=== PATIENT | female | born 1965 | race Two or more races ===

== ENCOUNTER → 2025-02-05 | Outpatient (CLI) | payer BC, SELFPAY ==
--- NOTE | 2025-02-05 08:19 | XR_ITS ---
Examination: Right hand 2 views Technique one AP lateral right hand 2 views Date and time: February 05, 2025 0821 hours INDICATIONS: Right hand pain and swelling beginning one month ago, no trauma. FINDINGS: Moderate osteopenia. No fracture or dislocation. No erosive or other significant arthritic change IMPRESSION: No erosive or other significant arthritic change
[2025-02-05 09:04] LABS: Collection Type, Urine Clean Catch
[2025-02-05 09:31] LABS: Basophils # (Auto) 0.1 Thou/mm3 (0.0-0.2); Basophils % (Auto) 1 % (0-2.5); Eosinophils # (Auto) 0.3 Thou/mm3 (0.0-0.5); Eosinophils % (Auto) 4 % (0-10); Hematocrit 42.2 % (36.0-46.0); Hemoglobin 13.5 g/dL (12.0-16.0); Immature Granulocytes Auto 0.02 Thou/mm3 (0.00-0.00); Lymphocytes # (Auto) 2.4 Thou/mm3 (1.0-4.8); Lymphocytes % (Auto) 33 % (10-50); Mean Corpuscular HGB Conc 32.0 g/dl (31.0-37.0); Mean Corpuscular Hemoglobin 30.8 pg (25.0-35.0); Mean Corpuscular Volume 96 fL (80-100); Monocytes # (Auto) 0.6 Thou/mm3 (0.0-0.8); Monocytes % (Auto) 8 % (0-12); Neutrophils # (Auto) 3.9 Thou/mm3 (1.8-7.7); Neutrophils % (Auto) 55 % (37-80); Nucleated Red Blood Cell # 0.00 Thou/mm3 (0.00-0.00); Nucleated Red Blood Cell % 0 /100 WBC (0); Platelet Count 341 Thou/mm3 (140-440); RDW Standard Deviation 43.8 fL (36.4-46.3); Red Blood Count 4.39 Miln/mm3 (4.00-5.20); White Blood Count 7.2 Thou/mm3 (3.6-11.0)
[2025-02-05 09:35] LABS: Bilirubin,Urine Negative (Negative); Blood,Urine Negative (Negative); Clarity,Urine Clear (Clear/Hazy); Color,Urine Lt-Yellow (Lt Yel-Yel); Glucose, Urine 4+ (Negative); Ketones,Urine Negative (Negative); Leukocyte Esterase,Urine Positive (Negative); Nitrite,Urine Negative (Negative); PH,Urine 7.0 (5.0-7.0); Protein,Urine Negative (Neg - Trace); RBC,Urine 3 /hpf (0-3); Specific Gravity,Urine 1.028 (1.001-1.035); Squamous Epithelial Cell,Urine 9 /hpf (0-5); Urobilinogen,Urine Negative mg/dL (0.0-1.0); WBC,Urine 25 /hpf (0-5)
[2025-02-05 09:36] LABS: Culture Indicated,Urine Yes
[2025-02-05 09:37] LABS: Glucose Estimated Average 117 mg/dL (80-131); Hemoglobin A1C 5.7 % Hgb (4.8-6.0)
[2025-02-05 09:44] LABS: Ferritin 54 ng/mL (7.3-270.7); Vitamin D 25 Hydroxy Total 40.9 ng/mL (7.3-40.2)
[2025-02-05 09:48] LABS: Alanine Aminotransferase 11 U/L (10-49); Albumin, Serum 4.0 gm/dL (3.5-5.0); Albumin/Globulin Ratio 1.5 (1.2-2.2); Alkaline Phosphatase 135 U/L (46-116); Anion Gap 10 (7-16); Aspartate Amino Transferase 17 U/L (0-34); BUN/Creatinine Ratio 19 Ratio (12-20); Bilirubin,Total 0.4 mg/dL (0.3-1.2); Blood Urea Nitrogen 13 mg/dL (9-23); Calcium 8.6 mg/dL (8.3-10.6); Calcium (Corrected) 8.6 mg/dL (8.5-10.1); Carbon Dioxide 28.3 mMol/L (20.0-31.0); Cardiac Risk Estimate 3.2 RATIO (3.7-5.6); Chloride 107 mMol/L (98-107); Cholesterol 152 mg/dL (132-200); Creatinine (Component) 0.7 mg/dL (0.6-1.3); Free T4 (Free Thyroxine) 1.20 ng/dL (0.89-1.76); Globulin 2.7 gm/dL (2.3-3.5); Glucose 85 mg/dL (74-106); HDL Cholesterol 48 mg/dL (40-60); LDL Cholesterol,Calculated 72 mg/dL (0-130); Osmolality,Calculated 287 (275-295); Potassium 3.9 mMol/L (3.4-5.1); Sodium 145 mMol/L (136-145); Thyroid Stimulating Hormone 3.14 uIU/mL (0.55-4.78); Total Protein 6.7 gm/dL (5.7-8.2); Triglycerides 162 mg/dL (30-150); eGFR > 60 See Note
[2025-02-05 09:58] LABS: Creatinine MALB Rnd Ur 72 mg/dL (30-125); Microalbumin Creat Ratio 4 mg/gCrea (<30); Microalbumin, Random Urine 3 mg/L (0-300)
[2025-02-11 06:19] LABS: Direct LDL* 78 mg/dL (<100)
== END | disposition home or self-care (01) ==
LOC: CDIM 08:15 → COPL 08:32
PROVIDERS: PCP Family Medicine; Referring Provider Physician Assistant; Visit Provider Radiology Diagnostic Radiology
DX: M79.89 Other specified soft tissue disorders (principal); E11.9 Type 2 diabetes mellitus without complications; E55.9 Vitamin D deficiency, unspecified
CPT/HCPCS: 36415; 73120; 80053; 80061; 81001; 82043; 82306; 82570; 82728; 83036; 83721; 84439; 84443; 85025; 87086

== ENCOUNTER 2025-04-24 01:23 | Emergency (ER) | payer BC, SELFPAY ==
[2025-04-24 01:37] VITALS: BP 132/79; PULSE 58; RESP 18; TEMP 36.8; O2SAT 97
[2025-04-24] MEDS: TRIMETHOPRIM/SULFA 160/800 DS TABLET 1 TAB PO (01:47)
--- NOTE | 2025-04-24 01:50 | PD.EDHAND ---
Upper Extremity Injury RME/HPI General Chief Complaint: Hand/Wrist Problems Stated Complaint: LEFT FINGERS SWELLING Time Seen by Provider: 04/24/25 01:37 Arrival date/time: 04/24/25 01:23 59F with history of DM presents to ED with 2 days of L ring tip finger swelling and pain. Patient possibly poked her finger on a nando thorn 1 week ago. Limitations: no limitations Related Data Home Medications ?Medication ?Instructions ?Recorded ?Confirmed dapagliflozin propaned 5 1 tab PO BID 07/27/22 07/27/22 mg-metformin ER 1,000 mg tablet, ext rel 24hr (Xigduo XR) metoclopramide HCl 5 mg tablet 5 mg PO BID 07/27/22 07/27/22 pantoprazole 40 mg tablet,delayed 40 mg PO DAILY 07/27/22 07/27/22 release Previous Rx's ?Medication ?Instructions ?Recorded dicyclomine 10 mg capsule 10 mg PO QID PRN abdominal pain / 01/22/23 diarrhea #20 caps cefadroxil 1 gram tablet 1,000 mg PO BID 7 days #14 tabs 04/24/25 sulfamethoxazole 800 1 tab PO BID 7 days #14 tabs 04/24/25 mg-trimethoprim 160 mg tablet (Bactrim DS) Allergies Allergy/AdvReac Type Severity Reaction Status Date / Time No Known Allergies Allergy Verified 01/22/23 07:57 Review of Systems Review of Systems Systems Reviewed: All systems reviewed, normal except as documented Integumentary/Breasts Skin/Breast: Reports as per HPI and Reports skin pain Past Medical History Past Medical History NEUROLOGIC: Negative Neurological Disorders, Seizures or Amyotrophic Lateral Sclerosis (ALS/Isabella Gehrig's) CARDIAC: Positive Cardiac Disorders, Hypercholesterolemia, Edema, Hypertension and Varicose Veins; Negative Congestive Heart Failure or Cellulitis RESPIRATORY: Negative Chronic Obstructive Pulmonary Disease (COPD), Asthma, Bronchitis, Pneumonia or Tuberculosis GASTROINTESTINAL: Positive Gastrointestinal Disorders, Diverticulitis, Ulcer, Hemorrhoids and Gastroesophageal Reflux Disease; Negative Hepatitis, Cirrhosis, Gall Bladder Disease, Colitis or Crohn's Disease GENITOURINARY: Negative Genitourinary Disorders or Renal Disease REPRODUCTIVE: Positive Previous Pregnancies; Negative Pelvic Inflammatory Disease MUSCULOSKELETAL: Negative Musculoskeletal Disorders or Carpal Tunnel Syndrome ENT: Positive Cataracts ENDOCRINE: Positive Endocrine Disorders and Diabetes Mellitus Type 2; Negative Diabetes Mellitus Type 1 or Hypothyroidism HEMATOLOGIC: Negative Blood Disorders or Anemia PSYCHO/SOCIAL: Positive Depression and Anxiety OTHER HISTORY: Positive Measles; Negative Hospitalization, Autoimmune Disease, Shingles, Falls, Blood Transfusions, Anesthesia Reactions, Organ Transplant, Chemotherapy, Radiation Therapy, MRSA, Chicken Pox, Mumps or Cancer Family History FAMILY HISTORY: Positive Family Cardiac Disorders, Family Cancer and Family Surgery; Negative Family Psychiatric Problems, Family Respiratory Disorders, Family Gastrointestinal Problems or Family Anesthesia Reaction Surgical History SURGICAL: Positive Eye Surgery and Nephrectomy; Negative Cardiac Surgery, Pacemaker, Endocrine Surgery, Thyroidectomy, Abdominal Surgery, Joint Replacement, Neurologic Surgery, Mastectomy, Vasectomy or Organ Transplant Social History SMOKING STATUS: Never smoker ED Exam General Limitations: Present no limitations General appearance: Present alert and in no apparent distress Head Head exam: Present atraumatic Neck Neck exam: Present normal inspection, full ROM and trachea midline Chest Chest inspection: Present normal inspection and symmetric chest wall rise Extremities Exam Extremities exam: Present full ROM Expanded Upper Extremity Exam Hand exam: Present full ROM (L tip index finger), tenderness, swelling and erythema Neurological Exam Neurological exam: Present alert, oriented X3 and CN II-XII intact Psychiatric Psychiatric exam: Present normal affect and normal mood Skin Skin exam: Present warm, dry, intact and normal color Course Quality Measures none Orders Category Date Time Status Trimethoprim/Sulfa 160/800 Ds [Bactrim Ds] Med 04/24/25 01:39 Discontinued 1 tab PO X1 ONE cephALEXin [Keflex] Med 04/24/25 01:39 Discontinued 500 mg PO X1 ONE Vital Signs Vital signs: Vital Signs Temperature 98.3 F 04/24/25 01:37 Pulse Rate 58 L 04/24/25 01:37 Respiratory Rate 18 04/24/25 01:37 Blood Pressure 132/79 H 04/24/25 01:37 Pulse Oximetry (%) 97 04/24/25 01:37 Oxygen Delivery Method Room Air 04/24/25 01:37 O2 at 97% on RA and WNLs Extremity Injury MDM Narrative MDM Narrative:: 59F with history of DM presents to ED with 2 days of L ring tip finger swelling and pain. Patient possibly poked her finger on a nando thorn 1 week ago. Physical exam reveals L ring finger tip redness, swelling, and tenderness. No pain with passive or active ROM of fingers/hand. Patient is afebrile, calm, and alert. Meds and personnel counselor given. Will give dual coverage of Keflex/Duricef and Bactrim. Patient data External records reviewed:: [facility] previous records Clinical information provided by:: patient Social determinants that could affect healthcare access:: none Patient has the following chronic illnesses:: DM How is presenting disease/condition affected by chronic disease/condition?: exacerbated by Evaluation data The following diagnostics were reviewed and interpreted by me:: other (specify) (none) Lab and/or radiology exams considered but not ordered:: not ordered Interpretation Summary: n/a Medications / Prescriptions Medications or Prescriptions considered but not ordered:: ordered Medication administrations:: Medication Administration History Discontinued Medications Cephalexin HCl (Cephalexin 250 Mg Capsule) 500 mg PO X1 ONE Stop: 04/24/25 01:40 Last Admin: 04/24/25 01:47 Dose: 500 mg Documented By: MALLORY Trimethoprim/Sulfamethoxazole (Trimethoprim/Sulfa 160/800 Ds Tablet) 1 tab PO X1 ONE Stop: 04/24/25 01:40 Last Admin: 04/24/25 01:47 Dose: 1 tab Documented By: MALLORY above Consultations Consultation(s) initiated? (list below): No Diagnosis Upper Extremity Injury Differential Diagnosis: sprain and strain of wrist, fracture of wrist, finger sprain, dislocation of finger, Colles' fracture, fracture of hand and other (cellulitis, flexor tenosynovitis) Most likely diagnosis given after review of the tests above:: cellulitis Admission Indicated Admission indicated?: not indicated Admission Request Was there a request for admission?: No Disposition Plan Disposition Plan: Discharge Discharge Attestation Discharge Attestation: The patient and all family members were given an opportunity to ask questions and understood the discharge instructions. Discharge instructions specifically effects, indications for sooner follow up or return to the emergency department, and the expected course of current diagnosis. Patient condition: Stable Discharge Plan Plan Patient Disposition: HOME (Self Care) Discharge Disposition comment: Stable Prescriptions/Referrals Prescriptions/Med Rec: New cefadroxil 1 gram tablet 1,000 mg PO BID 7 Days Qty: 14 0RF sulfamethoxazole-trimethoprim [Bactrim DS] 800-160 mg tablet 1 tab PO BID 7 Days Qty: 14 0RF No Action dicyclomine 10 mg capsule 10 mg PO QID PRN (Reason: abdominal pain / diarrhea) Qty: 20 0RF metoclopramide HCl 5 mg tablet 5 mg PO BID Patient Comments: TOME CONSTANTIN TABLETA DOS VECES AL D A pantoprazole 40 mg tablet,delayed release (DR/EC) 40 mg PO DAILY Patient Comments: NAJMA CONSTANTIN TABLETA POR V A ORAL TODOS LOS D Xigduo XR 5-1,000 mg tablet, IR - ER, biphasic 24hr 1 tab PO BID Patient Comments: TAKE 1 TABLET BY ORAL ROUTE 2 TIMES EVERY DAY IN THE MORNING WITH FOOD Problem List Clinical Impression: Cellulitis Patient/Caregiver Discharge Instructions Education Materials: ED Cellulitis Additional Instructions: Please follow-up with PCP within 24-48 hours and return immediately if symptoms worsen. Print Language: Dominican Stand Alone Forms: Patient Portal Info Letter PA/CASTING MACHINE OPERATOR Supervising Physician PA/ELIEZER Supervising Physician: Dr. Jansen
== END 2025-04-24 02:08 | disposition home or self-care (01) ==
LOC: SERX 02:16
PROVIDERS: Emergency Provider Emergency Medicine; PCP Physician Assistant
DX: L03.012 Cellulitis of left finger (principal); E11.9 Type 2 diabetes mellitus without complications; Z79.84 Long term (current) use of oral hypoglycemic drugs; Z95.0 Presence of cardiac pacemaker
CPT/HCPCS: 99282; A9270